=== PATIENT | male | born 1960 | race Caucasian/White ===

== ENCOUNTER 2023-02-21 07:22 | Emergency (ER) | payer OTHER, SELFPAY ==
[2023-02-21 07:25] VITALS: BP 129/83; PULSE 91; RESP 18; TEMP 35.7; O2SAT 96; BMI 33.0
--- NOTE | 2023-02-21 07:48 | CRLHL7_ITS ---
For Patients: As a result of the Century Cures Act, medical imaging exams and procedure reports are released immediately into your electronic medical record. You may view this report before your referring provider. If you have questions, please contact your health care provider. Indication: Left lower quadrant pain Technique: Contrast CT abdomen and pelvis Comparison: No comparison Findings: Heart size is normal. Lung bases are clear. Fatty appearance to liver. Tiny too small to characterize low-attenuation lesion right hepatic lobe. The gallbladder pancreas adrenal glands spleen unremarkable. Kidneys are unremarkable. Normal appendix. Fat containing inguinal hernias. Urinary bladder decompressed. There is diverticulosis there is bowel wall thickening and pericolonic inflammatory change involving the descending colon, sigmoid colon. More inflammatory change around the sigmoid colon. .small amount of free fluid in the pelvis. No suspicious bony lesions are seen. Impression: 1. Diverticulosis with bowel wall thickening and inflammatory change involving the descending colon and sigmoid colon more pronounced pericolonic inflammatory change around the sigmoid colon. Findings favored to represent colitis less likely diverticulitis but not completely excluded. Please note that all CT scans at this facility use dose modulation, iterative reconstruction, and/or weight-based dosing when appropriate to reduce radiation dose to as low as reasonably achievable. Dictated by Bonnie Overton MD @ 02/21/2023 9:17:55 AM (Electronically Signed)
--- NOTE | 2023-02-21 07:51 | ED_ITS ---
HPI - General Adult General Chief complaint: Abdominal Pain <Letitia Fortune MD - Last Filed: 02/21/23 23:59> Stated complaint: severe abdominal pain/lower left side <Letitia Fortune MD - Last Filed: 02/21/23 23:59> Time Seen by Provider: 02/21/23 07:40 <Letitia Fortune MD - Last Filed: 02/21/23 23:59> Source: patient <Letitia Fortune MD - Last Filed: 02/21/23 23:59> Mode of arrival: ambulatory <Letitia Fortune MD - Last Filed: 02/21/23 23:59> Limitations: no limitations <Letitia Fortune MD - Last Filed: 02/21/23 23:59> History of Present Illness HPI narrative: 62-year-old male presents to the emergency department with a 30 hour history of left lower quadrant abdominal pain, worsening this morning. Pain is crampy in nature. It is accompanied by loose stools. There was a bit of blood tinge to the stool he believes yesterday but has not noticed any in subsequent stools. He has a poor appetite but there is no vomiting. He has been keeping up with fluids. No fevers, chills or rigors but he did have a mild headache yesterday. No prior history of similar symptoms. His last colonoscopy was 2 years ago, he did report diverticula noted at that visit. He has frequent colonoscopies due to polyps. He has never had diverticulitis previously. No CVA tenderness, no dysuria. Not prone to urinary infections. He tried taking some Tylenol yesterday which did improve his headache but did not influence his abdominal pain. He has not tried any other interventions for his symptoms. Past medical history notable for hypertension. Long-term meds are lisinopril and atenolol. He has had multiple prior orthopedic surgeries including an elbow surgery, patella surgery, Achilles surgery on each side but no intra-abdominal surgeries per his report. He denies any allergies. Socially, he is a nonsmoker but does report regular alcohol use. ROS is notable for the generalized, abdominal symptoms as above. Otherwise he denies times 12 systems. <Letitia Fortune MD - Last Filed: 02/21/23 23:59> Related Data Home medications: Home Medications Medication Instructions Recorded Confirmed atenolol 25 mg tablet 25 mg PO DAILY 02/21/23 02/21/23 atorvastatin 40 mg tablet 40 mg PO QPM 02/21/23 02/21/23 indomethacin 50 mg capsule 50 mg PO 3XD 02/21/23 02/21/23 lisinopril 20 1 tab PO DAILY 02/21/23 02/21/23 mg-hydrochlorothiazide 25 mg tablet meclizine 12.5 mg tablet 12.5 mg PO 3XD PRN 02/21/23 02/21/23 <Letitia Fortune MD - Last Filed: 02/21/23 23:59> Allergies/adverse reactions: Allergies Allergy/AdvReac Type Severity Reaction Status Date / Time No Known Drug Allergies Allergy Verified 02/21/23 09:03 <Letitia Fortune MD - Last Filed: 02/21/23 23:59> [facility] Medical History: Medical History Achilles rupture ?S86.019A - Strain of unspecified Achilles tendon, initial encounter (ICD-10) Hypertension ?I10 - Essential (primary) hypertension (ICD-10) Patella fracture ?S82.009A - Unspecified fracture of unspecified patella, initial encounter f or closed fracture (ICD-10) Pitcher's elbow of right upper extremity ?M24.821 - Other specific joint derangements of right elbow, not elsewhere classified (ICD-10) <Letitia Fortune MD - Last Filed: 02/21/23 23:59> Social History: Social History Smoking Status: Never smoker Do you use any of these nicotine containing products: None How often do you have a drink containing alcohol: 2-3 times a week How often do you have six or more drinks on one occasion: Weekly AUDIT-C Alcohol total score: 6 Non-prescribed substance use: denies use <Letitia Fortune MD - Last Filed: 02/21/23 23:59> Exam Const: Vital Signs, click to edit/add: Vital Signs - 24 hr 02/21/23 07:25 02/21/23 09:20 Temperature 96.2 F L Pulse Rate [Right Pulse Oximeter] 91 64 Respiratory Rate 18 18 Blood Pressure [Ri ght Upper Arm] 129/83 117/78 Pulse Oximetry 96 97 Oxygen Delivery Me thod Room Air Room Air <Letitia Fortune MD - Last Filed: 02/21/23 23:59> Vital Signs, click to edit/add: Vital Signs - 24 hr 02/21/23 07:25 02/21/23 09:20 Temperature 96.2 F L Pulse Rate [Right Pulse Oximeter] 91 64 Respiratory Rate 18 18 Blood Pressure [Ri ght Upper Arm] 129/83 117/78 Pulse Oximetry 96 97 Oxygen Delivery Me thod Room Air Room Air <Terry Travis MD - Last Filed: 02/21/23 16:41> Documenting provider has reviewed patient's vital signs: yes <Letitia Fortune MD - Last Filed: 02/21/23 23:59> Common normals: no apparent distress <Letitia Fortune MD - Last Filed: 02/21/23 23:59> General appearance: cooperative <Letitia Fortune MD - Last Filed: 02/21/23 23:59> Other: Appears mildly uncomfortable, great historian. <Letitia Fortune MD - Last Filed: 02/21/23 23:59> HENMT: Common normals: normocephalic <Letitia Fortune MD - Last Filed: 02/21/23 23:59> Head and scalp: normocephalic <Letitia Fortune MD - Last Filed: 02/21/23 23:59> Face and sinus: normal facial exam <Letitia Fortune MD - Last Filed: 02/21/23 23:59> Mouth: oral and palatal mucosa normal <Letitia Fortune MD - Last Filed: 02/21/23 23:59> Throat: posterior oropharynx normal <Letitia Fortune MD - Last Filed: 02/21/23 23:59> Eye: Common normals: conjunctivae normal <Letitia Fortune MD - Last Filed: 02/21/23 23:59> General eye: normal appearance of both eyes <MD Chen Flores Last Filed: 02/21/23 23:59> Conjunctiva: conjunctiva(e) normal <Letitia Fortune MD - Last Filed: 02/21/23 23:59> Neck & C-Spine: Common normals: no lymphadenopathy <Letitia Fortune MD - Last Filed: 02/21/23 23:59> Resp: Common normals: normal respiratory effort, no use of accessory muscles and clear to auscultation bilaterally <MD Chen Flores Last Filed: 02/21/23 23:59> Effort & inspection: able to speak in complete sentences <Letitia Fortune MD - Last Filed: 02/21/23 23:59> Auscultation: clear to auscultation bilaterally <Letitia Fortune MD - Last Filed: 02/21/23 23:59> Cardio: Common normals: regular rate, regular rhythm, S1 normal heart sound, S2 normal heart sound and no murmurs <Letitia Fortune MD - Last Filed: 02/21/23 23:59> Rate: regular rate <MD Chen Flores Last Filed: 02/21/23 23:59> Rhythm: regular rhythm <MD Chen Flores Last Filed: 02/21/23 23:59> Heart sounds: S1 normal and S2 normal <Letitia Fortune MD - Last Filed: 02/21/23 23:59> GI: Other: Abdomen is obese but soft. There is a small umbilical hernia which does reduce. The liver is not enlarged. The abdomen is exquisitely tender in the left lower quadrant does demonstrate some guarding. There does not seem to be rebound tenderness. Other than the small umbilical hernia there is no mass. Bowel sounds are active in all 4 quadrants. <Letitia Fortune MD - Last Filed: 02/21/23 23:59> : Common normals: no CVA tenderness <MD Chen Flores Last Filed: 02/21/23 23:59> Bladder/kidney exam: no CVA tenderness <Letitia Fortune MD - Last Filed: 02/21/23 23:59> Back & Pelvis: Common normals: no CVA tenderness <Letitia Fortune MD - Last Filed: 02/21/23 23:59> Extremity: Common normals: normal capillary refill and no pedal edema <Letitia Fortune MD - Last Filed: 02/21/23 23:59> Neuro: Speech: speech normal <Letitia Fortune MD - Last Filed: 02/21/23 23:59> Motor exam: no tremor noted and no movement abnormalities noted <Letitia Fortune MD - Last Filed: 02/21/23 23:59> Psych: Attitude: engaged <Letitia Fortune MD - Last Filed: 02/21/23 23:59> Activity/motor behavior: appropriate eye contact <Letitia Fortune MD - Last Filed: 02/21/23 23:59> Insight: insight good <Letitia Fortune MD - Last Filed: 02/21/23 23:59> Judgement: judgment good <Letitia Fortune MD - Last Filed: 02/21/23 23:59> Skin: Common normals: no rashes or lesions noted <Letitia Fortune MD - Last Filed: 02/21/23 23:59> General skin exam: no rashes or lesions noted <Letitia Fortune MD - Last Filed: 02/21/23 23:59> Course Course Hospital Course: CT scan came back showing diverticulitis, possibility of colitis was also entered but given the fact he does not have diarrhea I do not think this is what is going on, no abscess was seen, and I think he can go home and trial oral medications which is what the patient would like to do. We went over the risks benefits and side effects with this, and he will return as needed. <Letitia Fortune MD - Last Filed: 02/21/23 23:59> Reevaluation(s) Reevaluation #1: I did re-evaluate the patient, after assuming care, he is very tender in his left lower quadrant, I would also agrees not peritoneal, I did convince him to take some Toradol and some Zofran, we will see how this goes. <Terry Travis MD - Last Filed: 02/21/23 16:41> Time: 08:35 <Terry Travis MD - Last Filed: 02/21/23 16:41> Vital Signs Vital signs: Initial Vital Signs Temperature 96.2 F L 02/21/23 07:25 Temperature Source Temporal Artery Scan 02/21/23 07:25 Pulse Rate 91 02/21/23 07:25 Respiratory Rate 18 02/21/23 07:25 Blood Pressure 129/83 02/21/23 07:25 Blood Pressure Mean 98 02/21/23 07:25 Blood Pressure Position Sitting 02/21/23 07:25 Pulse Oximetry 96 02/21/23 07:25 Oxygen Delivery Method Room Air 02/21/23 07:25 Vital Signs Temperature 96.2 F L 02/21/23 07:25 Pulse Rate 91 02/21/23 07:25 Respiratory Rate 18 02/21/23 07:25 Blood Pressure 129/83 02/21/23 07:25 Pulse Oximetry 96 02/21/23 07:25 Oxygen Delivery Method Room Air 02/21/23 07:25 Temperature 96.2 F L 02/21/23 07:25 Pulse Rate 64 02/21/23 09:20 Respiratory Rate 18 02/21/23 09:20 Blood Pressure 117/78 02/21/23 09:20 Pulse Oximetry 97 02/21/23 09:20 Oxygen Delivery Method Room Air 02/21/23 09:20 <Letitia Fortune MD - Last Filed: 02/21/23 23:59> Initial Vital Signs Temperature 96.2 F L 02/21/23 07:25 Temperature Source Temporal Artery Scan 02/21/23 07:25 Pulse Rate 91 02/21/23 07:25 Respiratory Rate 18 02/21/23 07:25 Blood Pressure 129/83 02/21/23 07:25 Blood Pressure Mean 98 02/21/23 07:25 Blood Pressure Position Sitting 02/21/23 07:25 Pulse Oximetry 96 02/21/23 07:25 Oxygen Delivery Method Room Air 02/21/23 07:25 Vital Signs Temperature 96.2 F L 02/21/23 07:25 Pulse Rate 91 02/21/23 07:25 Respiratory Rate 18 02/21/23 07:25 Blood Pressure 129/83 02/21/23 07:25 Pulse Oximetry 96 02/21/23 07:25 Oxygen Delivery Method Room Air 02/21/23 07:25 Temperature 96.2 F L 02/21/23 07:25 Pulse Rate 64 02/21/23 09:20 Respiratory Rate 18 02/21/23 09:20 Blood Pressure 117/78 02/21/23 09:20 Pulse Oximetry 97 02/21/23 09:20 Oxygen Delivery Method Room Air 02/21/23 09:20 <Terry Travis MD - Last Filed: 02/21/23 16:41> Medical Decision Making MDM Narrative Medical decision making narrative: Differential diagnosis is high as for diverticulitis. Cannot exclude colitis, urinary abnormality, kidney stone, musculoskeletal etiology, hernia, volvulus, others. Offered pain medication, he is declining at this time. Will place IV. Bolus 1 L of LR, basic lab studies, urinalysis CT scan of the abdomen and pelvis. Handing off patient care to incoming day shift partner. <Letitia Fortune MD - Last Filed: 02/21/23 23:59> Medical Records Medical records reviewed: Yes I reviewed the patient's medical records <Terry Travis MD - Last Filed: 02/21/23 16:41> Lab Data Lab results reviewed: Yes I reviewed the patient's lab results <Terry Travis MD - Last Filed: 02/21/23 16:41> Labs: Lab Results 02/21/23 02/21/23 Range/Units 08:05 10:10 WBC 18.02 H (4.50-11.00) K/uL RBC 5.37 (4.30-5.90) m/uL Hgb 16.8 (13.5-17.5) gm/dL Hct 48.5 (37.0-53.0) % MCV 90 (80-100) fL MCH 31 (26-34) pg MCHC 35 (32-36) gm/dL RDW Coeff of Luis Antonio 12.8 (11.5-15.5) % Plt Count 344 (140-440) K/uL Neut % (Auto) 78.1 H (42.0-72.0) % Lymph % (Auto) 12.5 L (20-44) % [place] % (Auto) 7.7 (0.0-11.0) % Eos % (Auto) 0.2 (0.0-7.0) % Baso % (Auto) 0.2 (0.0-3.0) % Neut # (Auto) 14.10 H (1.7-7.0) K/uL Lymph # (Auto) 2.30 (0.90-2.90) K/uL [place] # (Auto) 1.40 H (0.00-0.90) K/UL Eos # (Auto) 0.00 (0.00-0.50) K/uL Baso # (Auto) 0.00 (0.00-0.30) K/uL Sodium 135 (135-149) mmol/L Potassium 4.0 (3.6-5.1) mmol/L Chloride 103 (96-114) mmol/L Carbon Dioxide 21 (20-32) mmol/L BUN 24 (7-30) mg/dL Creatinine 1.0 (0.5-1.5) mg/dL Estimated Creat Clear 77.06 Estimated GFR 84 ml/min Glucose 133 H (60-115) mg/dL Lactate 1.5 (0.5-1.9) mmol/L Calcium 9.3 (8.4-10.6) mg/dL Total Bilirubin 1.9 H (0.1-1.5) mg/dL AST 22 (12-35) U/L ALT 23 (4-50) U/L Alkaline Phosphatase 70 (40-150) U/L C-Reactive Protein 15.6 H (0.5-1.0) mg/dL Total Protein 7.4 (6.0-8.3) g/dL Albumin 4.5 (3.3-5.0) g/dL Urine Color Fanta A (Yellow) Urine Appearance Clear (Clear) Urine pH 6.5 (5.0-8.5) Ur Specific [place] 1.020 (1.000-1.030) Urine Protein 1+ A (Negative) Urine Glucose (UA) Negative (Negative) Urine Ketones Trace A (Negative) Urine Blood Negative (Negative) Urine Nitrite Negative (Negative) Urine Bilirubin 1+ A (Negative) Urine Urobilinogen 0.2 (0.2-1.0) Ur Leukocyte Esterase Negative (Negative) Urine RBC 0-2 (0-2) Urine WBC 0-2 (0-5) Ur Squamous Epith Cells Few (None-Few) Urine Bacteria Few A (None) Urine Mucus Moderate A (None) <Letitia Fortune MD - Last Filed: 02/21/23 23:59> Lab Results 02/21/23 02/21/23 Range/Units 08:05 10:10 WBC 18.02 H (4.50-11.00) K/uL RBC 5.37 (4.30-5.90) m/uL Hgb 16.8 (13.5-17.5) gm/dL Hct 48.5 (37.0-53.0) % MCV 90 (80-100) fL MCH 31 (26-34) pg MCHC 35 (32-36) gm/dL RDW Coeff of Luis Antonio 12.8 (11.5-15.5) % Plt Count 344 (140-440) K/uL Neut % (Auto) 78.1 H (42.0-72.0) % Lymph % (Auto) 12.5 L (20-44) % [place] % (Auto) 7.7 (0.0-11.0) % Eos % (Auto) 0.2 (0.0-7.0) % Baso % (Auto) 0.2 (0.0-3.0) % Neut # (Auto) 14.10 H (1.7-7.0) K/uL Lymph # (Auto) 2.30 (0.90-2.90) K/uL [place] # (Auto) 1.40 H (0.00-0.90) K/UL Eos # (Auto) 0.00 (0.00-0.50) K/uL Baso # (Auto) 0.00 (0.00-0.30) K/uL Sodium 135 (135-149) mmol/L Potassium 4.0 (3.6-5.1) mmol/L Chloride 103 (96-114) mmol/L Carbon Dioxide 21 (20-32) mmol/L BUN 24 (7-30) mg/dL Creatinine 1.0 (0.5-1.5) mg/dL Estimated Creat Clear 77.06 Estimated GFR 84 ml/min Glucose 133 H (60-115) mg/dL Lactate 1.5 (0.5-1.9) mmol/L Calcium 9.3 (8.4-10.6) mg/dL Total Bilirubin 1.9 H (0.1-1.5) mg/dL AST 22 (12-35) U/L ALT 23 (4-50) U/L Alkaline Phosphatase 70 (40-150) U/L C-Reactive Protein 15.6 H (0.5-1.0) mg/dL Total Protein 7.4 (6.0-8.3) g/dL Albumin 4.5 (3.3-5.0) g/dL Urine Color Fanta A (Yellow) Urine Appearance Clear (Clear) Urine pH 6.5 (5.0-8.5) Ur Specific [place] 1.020 (1.000-1.030) Urine Protein 1+ A (Negative) Urine Glucose (UA) Negative (Negative) Urine Ketones Trace A (Negative) Urine Blood Negative (Negative) Urine Nitrite Negative (Negative) Urine Bilirubin 1+ A (Negative) Urine Urobilinogen 0.2 (0.2-1.0) Ur Leukocyte Esterase Negative (Negative) Urine RBC 0-2 (0-2) Urine WBC 0-2 (0-5) Ur Squamous Epith Cells Few (None-Few) Urine Bacteria Few A (None) Urine Mucus Moderate A (None) <Terry Travis MD - Last Filed: 02/21/23 16:41> Imaging Data CT scan - abdomen: Attestation: I have reviewed the pertinent imaging results. <Terry Travis MD - Last Filed: 02/21/23 16:41> Radiologist's impression: Patient: YAMILA COLON Facility:?[facility] Patient ID:?[id number] Site Patient ID:?[id number]. Site :?[id number] Study:?CT Abdomen/Pelvis W/ 100CC [id number]/28/2023 9:08:29 AM Ordering Physician:Sam Dong Final Report: Indication: Left lower quadrant pain Technique: Contrast CT abdomen and pelvis Comparison: No comparison Findings: Heart size is normal. Lung bases are clear. Fatty appearance to liver. Tiny too small to characterize low-attenuation lesion right hepatic lobe. The gallbladder pancreas adrenal glands spleen unremarkable. Kidneys are unremarkable. Normal appendix. Fat containing inguinal hernias. Urinary bladder decompressed. There is diverticulosis there is bowel wall thickening and pericolonic inflammatory change involving the descending colon, sigmoid colon. More inflammatory change around the sigmoid colon. .small amount of free fluid in the pelvis. No suspicious bony lesions are seen. Impression: 1. Diverticulosis with bowel wall thickening and inflammatory change involving the descending colon and sigmoid colon more pronounced pericolonic inflammatory change around the sigmoid colon. Findings favored to represent colitis less likely diverticulitis but not completely excluded. Please note that all CT scans at this facility use dose modulation, iterative reconstruction, and/or weight-based dosing when appropriate to reduce radiation dose to as low as reasonably achievable. Dictated by Bonnie Overton MD @ 02/21/2023 9:17:55 AM (Electronic Signature) <Terry Travis MD - Last Filed: 02/21/23 16:41> Discharge Plan Discharge Clinical Impression: Diverticulitis <Letitia Fortune MD - Last Filed: 02/21/23 23:59> Patient Disposition: Home, Self-Care <Letitia Fortune MD - Last Filed: 02/21/23 23:59> Condition: Improved <Letitia Fortune MD - Last Filed: 02/21/23 23:59> Instructions: Diverticulitis (DC), Diverticulitis Diet (ED), GI (Gastrointestinal) Soft Diet (ED) <Letitia Fortune MD - Last Filed: 02/21/23 23:59> Additional Instructions: Home rest, fluid diet increasing to soft diet over the next few days, there is some handouts given for you, antibiotics as directed, as he did not seem to be a big advocate of the narcotics I did give you the Toradol, the ca veats with the Toradol is that she can take your indomethacin, ibuprofen, Aleve with this. He may take acetaminophen, that is okay to take with that for pain, you should improve over the next 3-5 days markedly, light duty is suggested, such is only walking but avoidance of the lifting exercising except trip. Increasing abdominal pain fevers chills nausea vomiting then you should be re- evaluated does occasionally people get worse as ice talk to you about. Would suggest if this is a recurrent issue that she get seen by General surgery but for a 1 time episode we do not have to do that. Follow-up with primary care in about a week to 10 days, side note you have an excellent family doctor <Letitia Fortune MD - Last Filed: 02/21/23 23:59> Prescriptions: No Action atorvastatin 40 mg tablet 40 mg PO QPM atenolol 25 mg tablet 25 mg PO DAILY meclizine 12.5 mg tablet 12.5 mg PO 3XD PRN indomethacin 50 mg capsule 50 mg PO 3XD lisinopril-hydrochlorothiazide 20-25 mg tablet 1 tab PO DAILY <Letitia Fortune MD - Last Filed: 02/21/23 23:59> Follow Up/Referrals: Ihsan Anders MD [Primary Care Provider] - <Letitia Fortune MD - Last Filed: 02/21/23 23:59> Stand Alone Forms: My[facility] Info Instructions <Letitia Fortune MD - Last Filed: 02/21/23 23:59>
[2023-02-21] MEDS: LACTATED RINGERS 1000 ML 1,000 ML IV (08:08)
[2023-02-21 08:21] LABS: Lactate* 1.5 mmol/L (0.5-1.9)
[2023-02-21] MEDS: KETOROLAC 30 MG/ML inj IVP (08:27)
[2023-02-21] MEDS: ONDANSETRON 2 MG/ML inj 4 MG IVP (08:27)
[2023-02-21 08:39] LABS: Albumin* 4.5 g/dL (3.3-5.0); Chloride* 103 mmol/L (96-114); Sodium* 135 mmol/L (135-149)
[2023-02-21 08:42] LABS: Bilirubin Total* 1.9 mg/dL (0.1-1.5); Est. Creatinine Clearance* 77.06; Estimated Glomerular Filt Rate 84 ml/min
[2023-02-21 08:43] LABS: Alanine Aminotransferase* 23 U/L (4-50); Alkaline Phosphatase* 70 U/L (40-150); Aspartate Amino Transferase* 22 U/L (12-35); Blood Urea Nitrogen* 24 mg/dL (7-30); Calcium* 9.3 mg/dL (8.4-10.6); Carbon Dioxide* 21 mmol/L (20-32); Glucose* 133 mg/dL (60-115); Total Protein* 7.4 g/dL (6.0-8.3)
[2023-02-21 08:58] LABS: Basophils Percent Auto 0.2 % (0.0-3.0); C Reactive Protein* 15.6 mg/dL (0.5-1.0); Eosinophils Percent Auto 0.2 % (0.0-7.0); Hematocrit 48.5 % (37.0-53.0); Hemoglobin* 16.8 gm/dL (13.5-17.5); Immature Granulocytes Pct Auto 1.3 %; Lymphocytes Percent Auto 12.5 % (20-44); Mean Corpuscular HGB Conc 35 gm/dL (32-36); Mean Corpuscular Hemoglobin 31 pg (26-34); Mean Corpuscular Volume 90 fL (80-100); Monocytes Percent Auto 7.7 % (0.0-11.0); Neutrophils Percent Auto 78.1 % (42.0-72.0); Platelet Count* 344 K/uL (140-440); RDW Coefficient of Variation % 12.8 % (11.5-15.5); Red Blood Count 5.37 m/uL (4.30-5.90); White Blood Count* 18.02 K/uL (4.50-11.00)
[2023-02-21 09:00] LABS: Slide Review Reflex No
[2023-02-21 09:20] VITALS: BP 117/78; PULSE 64; RESP 18; O2SAT 97
[2023-02-21] MEDS: PIPERACILLIN/TAZOBACTAM 3.375 GM in 0.9 % SODIUM CHLORIDE Mini-bag 100 ML IVPB (10:21)
[2023-02-21 10:48] LABS: Appearance Urine Clear (Clear); Bilirubin Urine 1+ (Negative); Blood Urine Negative (Negative); Color Urine Amber (Yellow); Glucose Urine Negative (Negative); Ketones Urine Trace (Negative); Leukocyte Esterase Urine Negative (Negative); Nitrite Urine Negative (Negative); Protein Urine 1+ (Negative); Urobilinogen Urine 0.2 (0.2-1.0); pH Urine 6.5 (5.0-8.5)
[2023-02-21 11:10] LABS: Bacteria Urine Few; Mucus Urine Moderate; RBC Urine 0-2 (0-2); Squamous Epithelial Cell Urine Few (None-Few); WBC Urine 0-2 (0-5)
== END 2023-02-21 11:10 | disposition home or self-care (01) ==
PROVIDERS: Family Medicine; Emergency Provider Family Medicine; PCP Family Medicine
DX: K57.92 Diverticulitis of intestine, part unspecified, without perforation or abscess without bleeding (principal)
CPT/HCPCS: 36415; 74177; 80053; 81003; 81015; 83605; 85025; 86140; 87086; 96365; 96375; 99284; J1885; J2405; J2543; J7120; Q9967